=== PATIENT | male | born 1965 | race Two or more races ===

== ENCOUNTER → 2016-12-15 | Outpatient (CLI) | payer OTHER ==
--- NOTE | 2016-12-15 16:22 | RAD ---
Indication fall. Pain. AP and lateral views of the thoracic spine were obtained as well as a swimmer's view. Vertebral height alignment are unremarkable. There are minimal degenerative changes. No acute finding is seen. IMPRESSION: No acute finding seen in the thoracic spine
== END | disposition home or self-care (01) ==
LOC: RAD 15:26
PROVIDERS: ATTEND Family Medicine
DX: M54.6 Pain in thoracic spine (principal); W19.XXXA Unspecified fall, initial encounter; Y93.89 Activity, other specified; Y92.89 Other specified places as the place of occurrence of the external cause; Y99.8 Other external cause status
CPT/HCPCS: 72072